=== PATIENT | female | born 1980 | race African-American/Black ===

== ENCOUNTER 2023-11-29 13:40 | Emergency (ER) | payer MEDICAID, OTHER ==
[~2023-11-29] VITALS: Ht 162.6 cm; Wt 101.1 kg
[2023-11-29 15:15] VITALS: TEMP 98.1
[2023-11-29 15:45] VITALS: PULSE 75; RESP 16; O2SAT 96
[2023-11-29 15:59] VITALS: BP 146/76; PULSE 84; RESP 16; O2SAT 96
== END 2023-11-29 16:10 | disposition home or self-care (01) ==
LOC: ER 13:40
DX: H53.8 Other visual disturbances (principal); Z98.890 Other specified postprocedural states
CPT/HCPCS: 70450